=== PATIENT | female | born 1990 | race African-American/Black ===

== ENCOUNTER 2024-02-07 00:24 | Emergency (ER) | payer BC, MEDICAID ==
[~2024-02-07] VITALS: Ht 175.3 cm; Wt 113.0 kg
[2024-02-07 00:27] VITALS: O2SAT 98
[2024-02-07 01:06] VITALS: BP 124/67; PULSE 93; RESP 18; TEMP 98.2; O2SAT 98
[2024-02-07] MEDS ORDERED: [UNRECOGNIZED DRUG - CODE] TP (01:29)
== END 2024-02-07 02:28 | disposition home or self-care (01) ==
LOC: ER 00:24
DX: L30.1 Dyshidrosis [pompholyx] (principal)
CPT/HCPCS: 99283